=== PATIENT | male | born 1935 | race Hispanic/Latino ===

== ENCOUNTER 2018-02-17 00:26 | Inpatient (IN) | payer MEDICARE, OTHER ==
[2018-02-17] VITALS (8 sets, daily range): BP systolic 128–178; BP diastolic 62–81
[~2018-02-17] VITALS: Ht 172.7 cm; Wt 74.6 kg
[~2018-02-17 00:26] MED LIST: ASPIRIN325 MG PO; BETIMOL5 M1; FINASTERIDE5 MG PO; FLAGYL250 MG PO; GLIMEPIRIDE2 MG PO; GLYBURIDE PO; LISINOPRIL10 MG PO; LOSARTAN POTASS25 MG PO; NIFEDICAL XL30 MG PO; NORVASC PO; NORVASC5 MG PO; PROAIR HFA INH8.5 GM; SIMVASTATIN PO; SIMVASTATIN20 MG PO; SYNTHROID125 MCG PO; TAMSULOSIN HCL0.4 MG PO; Z.0.AMBIEN CR12.5 MG PO; Z.0.FLOMAX0.4 MG PO; Z.0.LEVOTHYROXINE125 PO; ZOFRAN ODT4 MG PO
--- OUTSIDE RECORDS SUMMARY | 2018-02-17 00:29 | XMS REPORT ---
[facility] Address Unknown Phone Unavailable Care Team Providers Care Loan Interviewer Mortgage Name Role Phone Unavailable Unavailable Payers Payer Name Policy Type Policy Number Effective Date Expiration Date Problems This patient has no known problems. Allergies, Adverse Reactions, Alerts Allergy Name Allergy Type Status Severity Reaction(s) Onset Date Inactive Date Treating Clinician Comments No Known Allergies DA Active U 2017-06-27 00:00:00 Medications This patient has no known medications.
[2018-02-17] MEDS ORDERED: ACETAMINOPHEN 1000 MG/100 ML IV STA (01:06)
[2018-02-17] MEDS ORDERED: SODIUM CHLORIDE 0.9% 1000ML 1,000 ML IV ONE ×2 (01:15)
[2018-02-17] MEDS ORDERED: CEFTRIAXONE SOD 1 GM VIAL IV ONE (01:15)
[2018-02-17 02:17] LABS: BASOPHILS # (AUTO) 0.1 (0.0-0.1); BASOPHILS % 0.4 % (0.0-1.0); HEMATOCRIT 46.2 % (38.2-49.6); HEMOGLOBIN 16.4 g/dL (14.0-18.0); LYMPHOCYTES # (AUTO) 1.5 (1.0-3.2); LYMPHOCYTES % 6.6 % (18.0-39.1); MEAN CORPUSCULAR HEMOGLOBIN 30.1 pg (28-32); MEAN CORPUSCULAR HGB CONC 35.5 g/dL (31-35); MEAN CORPUSCULAR VOLUME 84.9 fL (81-99); MONOCYTES # (AUTO) 1.7 (0.2-0.8); MONOCYTES % 7.7 % (4.4-11.3); NEUTROPHILS # (AUTO) 18.3 (2.1-6.9); NEUTROPHILS % 82.9 % (38.7-80.0); PLATELET COUNT 205 x10e3/uL (140-360); RED BLOOD COUNT 5.44 x10e6/uL (4.3-5.7)
[2018-02-17 02:22] LABS: CLARITY,URINE SL CLOUDY (CLEAR); COLOR,URINE YELLOW (YELLOW); KETONES,URINE TRACE (NEGATIVE); LEUKOCYTE ESTERASE ,URINE TRACE (NEGATIVE); NITRITE,URINE NEGATIVE (NEGATIVE); PROTEIN,URINE DIPSTICK 1+ (NEGATIVE); URINE UROBILINOGEN 0.2 mg/dL (0.2 - 1)
[2018-02-17 02:23] LABS: BILIRUBIN,URINE NEGATIVE (NEGATIVE)
[2018-02-17 02:40] LABS: ALANINE AMINOTRANSFERASE 30 IU/L (0-55); ALBUMIN 4.1 g/dL (3.5-5.0); ALBUMIN/GLOBULIN RATIO 1.4 (0.8-2.0); ALKALINE PHOSPHATASE 104 IU/L (40-150); ANION GAP 18.9 mmol/L (8-16); BLOOD UREA NITROGEN 17 mg/dL (7-26); BUN/CREATININE RATIO 14 (6-25); CALCIUM 9.5 mg/dL (8.4-10.2); CARBON DIOXIDE 23 mmol/L (22-29); CHLORIDE 98 mmol/L (98-107); CREATINE KINASE 139 IU/L (30-200); CREATININE, SERUM 1.21 mg/dL (0.72-1.25); EST GLOMERULAR FILTRATION RATE 58 ML/MIN (60-); GLUCOSE 290 mg/dL (74-118); POTASSIUM 3.9 mmol/L (3.5-5.1); SODIUM 136 mmol/L (136-145)
--- NOTE | 2018-02-17 02:40 | Diagnostic Imaging Report ---
EXAMINATION: CHEST SINGLE (PORTABLE) INDICATION: Fever, cough COMPARISON: 11/10/2011 FINDINGS: AP view TUBES and LINES: None. LUNGS: Lungs are well inflated. Bibasilar opacities likely representing atelectasis. There is no evidence of pulmonary edema. PLEURA: No pleural effusion or pneumothorax. HEART AND MEDIASTINUM: The cardiomediastinal silhouette is unremarkable. BONES AND SOFT TISSUES: No acute osseous lesion. Soft tissues are unremarkable. UPPER ABDOMEN: No free air under the diaphragm. IMPRESSION: Bibasilar opacities likely representing atelectasis. Developing pneumonia not excluded. Signed by: DR. Mao Oliver MD on 02/17/2018 2:37 AM
[2018-02-17 02:47] LABS: BACTERIA,URINE MANY /HPF; EPITHELIAL CELLS,URINE FEW /LPF; RBC,URINE 0-5 /HPF (0-5); WBC,URINE (MAN) >50 /HPF (0-5)
[2018-02-17] MEDS: AZITHROMYCIN 500MG/NS 250 ML 250 ML IV SCH (03:32)
[2018-02-17] MEDS ORDERED: ONDANSETRON HCL INJ 2 MG/ML VIAL IV STA (03:49)
[2018-02-17] MEDS ORDERED: SODIUM CHLORIDE 0.9% 1000ML 1,000 ML IV SCH (03:49)
[2018-02-17] MEDS ORDERED: DEXTROSE 50% SYRINGE 50 ML IV PRN (04:00)
[2018-02-17] MEDS ORDERED: ACETAMINOPHEN 325 MG TAB PO PRN (04:00)
[2018-02-17 04:12] LABS: BAND NEUTROPHILS % (MANUAL) 3 %; LYMPHOCYTES % (MANUAL) 7 % (19-48); MONOCYTES % (MANUAL) 12 % (3.4-9.0); NEUTROPHILS % (MANUAL) 75 % (40-74); PLATELET ESTIMATE ADEQUATE; PLATELET MORPHOLOGY COMMENT NORMAL; RBC MORPHOLOGY COMMENT NORMAL
[2018-02-17] MEDS: ALBUTEROL SULF 0.083% NEB SOLN 3 ML NEB NEB SCH ×2 (07:00→11:00)
[2018-02-17] MEDS: IPRATROPIUM BROMIDE 0.02% 2.5 ML NEB NEB SCH ×2 (07:00→13:00)
[2018-02-17] MEDS: INSULIN REGULAR, HUMAN 100 UNIT/1 ML 3ML VIAL SQ SCH ×4 (08:00→20:48)
[2018-02-17 09:34] LABS: CREATINE KINASE 102 IU/L (30-200)
[2018-02-17] MEDS ORDERED: ALBUTEROL/IPRATROPIUM 3 ML NEB NEB PRN (14:30)
--- NOTE | 2018-02-17 15:08 | Diagnostic Imaging Report ---
EXAM: CT Chest WITH contrast INDICATION: Shortness of breath COMPARISON: None. TECHNIQUE: The Chest was scanned utilizing a multidetector helical scanner after administration of IV contrast. Coronal and sagittal reformations were obtained. IV CONTRAST: COMPLICATIONS: None RADIATION DOSE: Total DLP: 515 mGy*cm Estimated effective dose: (DLP x 0.015 x size factor) mSv CTDIvol has been reviewed. It is below the limits set by the Radiation Protocol Committee (RPC). Appropriate CT dose reduction techniques were utilized. FINDINGS: Lines and Tubes: Tracheal cannula. Lower Neck: Postsurgical changes. Heart and Great Vessels: The aorta and main pulmonary artery measure 38 and 29 mm. respectively. No pericardial effusion. Moderate coronary artery vascular calcifications. Lymph Nodes: Small scattered mediastinal lymph nodes, not distinctly enlarged by size criteria. The hilar regions are sub-optimally evaluated given lack of IV contrast. Lungs: Moderate biapical scarring. No pneumothorax. Basilar subpleural reticulation, minimal groundglass opacities, linear scarring, and probable minimal bronchiectasis. Trachea and central bronchi are unremarkable. More peripheral bronchial wall thickening. Minimal centrilobular emphysematous changes. Upper abdomen: Limited. Hiatal hernia. Bones and Soft Tissues: Mild gynecomastia. No acute osseous findings. IMPRESSION: 1. No definite acute finding. 2. Basilar fibrotic changes/scarring may be senescent, sequela of recurrent/prior infection, or recurrent microaspiration. 3. Hiatal hernia. Signed by: Dr. Patrice Partida MD on 02/17/2018 3:04 PM
[2018-02-17] MEDS: GLIMEPIRIDE 2 MG TAB PO SCH (16:54)
[2018-02-17] MEDS: LISINOPRIL 10 MG TAB PO SCH (16:55)
[2018-02-17 17:22] LABS: CREATINE KINASE 88 IU/L (30-200)
--- NOTE | 2018-02-17 17:29 | History and Physical ---
PCP: Dr. Ashleigh Cain. CHIEF COMPLAINT: Increasing shortness of breath, coughing, not feeling well for the past week. Had recent eye surgery approximately 2 days ago, had fever of 101 on admission with greenish sputum from the tracheal opening. SUMMARY: Patient is an 82-year-old male with a chronic tracheal opening. Patient has fever with increase in output. Patient just recently had his eye procedures. He came in very weak and almost confused due to hypoxia. The patient is initiated on antibiotics. He is stable, admitted to the hospital for further treatment. 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 PAST SURGICAL HISTORY: Tracheostomy with laryngeal removal and tracheal opening now. SOCIAL HISTORY: Patient was a former smoker, he quit many years ago. No alcohol. No recreational drug use. Patient lives by himself and able to do his ADL. ALLERGIES: NO KNOWN ALLERGY. HOME MEDICATIONS: Patient was on Norvasc, aspirin, finasteride, Amaryl, levothyroxine, lisinopril, Flomax. PHYSICAL EXAMINATION VITAL SIGNS: T-max was 101, blood pressure 73/64, pulse rate was 105, respirations 18. GENERAL: The patient is not in acute distress. He is awake. HEENT: Normocephalic, atraumatic. Sclerae anicteric. NECK: Has a tracheal opening. PULMONARY: Bilateral coarse rales and rhonchi. CARDIOVASCULAR: S1, S2. Tachycardia. ABDOMEN: Soft. Nontender. No distention. EXTREMITIES: No gross cyanosis or edema. NEUROLOGIC: No gross focal deficit. Patient is coherent. LABORATORY DATA: WBC is 22,000, hemoglobin 16.4, hematocrit 46.2, platelets are 205. Chemistry, sodium 136, potassium 3.9, chloride 98, bicarb 23, BUN is 17, creatinine 1.2. Glucose is 290. Urinalysis is with 1+ blood, greater than 50 wbc's, and many bacteria. Imaging tests show possible bilateral pneumonia. IMPRESSION 1. Sepsis, moderate, with low blood pressure. Responded to intravenous fluid bolus. Therefore, no shock. 2. Urinary tract infection associated with urinary retention. 3. Urinary retention. 4. Aspiration pneumonia due to patient's history of laryngeal carcinoma with laryngeal removal and tracheal opening. PLAN: Continue with IV antibiotic, Zosyn, and azithromycin. IV fluid support bolus that was given, patient responded well. Continue with supportive measure. Resume home medication, Flomax. We will obtain a CT of the chest to document the aspiration with infiltrate and pneumonia. Check urine culture. Patient will be admitted for treatment. Job#: [id number] LPA
[2018-02-17] MEDS: PIPER-TAZ 3.375 GM 50 ML IV SCH (18:21)
[2018-02-17] MEDS: ALBUTEROL/IPRATROPIUM 3 ML NEB NEB SCH (19:57)
[2018-02-17] MEDS: TAMSULOSIN HCL 0.4 MG CAP PO SCH (20:47)
[2018-02-17] MEDS: AMLODIPINE BESYLATE 5 MG TAB PO SCH (20:48)
[2018-02-17] MEDS ORDERED: CEFTRIAXONE SOD 1 GM VIAL IV SCH (21:00)
[2018-02-17] MEDS: GUAIFENESIN 200 MG/10 ML UDC PO SCH (22:00)
[2018-02-18] VITALS (7 sets, daily range): BP systolic 102–158; BP diastolic 55–90
[2018-02-18] MEDS: ALBUTEROL/IPRATROPIUM 3 ML NEB NEB SCH ×4 (01:00→19:20)
[2018-02-18] MEDS ORDERED: CEFTRIAXONE SOD 1 GM VIAL IV SCH (02:00)
[2018-02-18] MEDS: AZITHROMYCIN 500MG/NS 250 ML 250 ML IV SCH (03:00)
[2018-02-18] MEDS: PIPER-TAZ 3.375 GM 50 ML IV SCH ×4 (06:00→18:30)
[2018-02-18] MEDS: LEVOTHYROXINE SODIUM 100 MCG TAB PO SCH (06:00)
[2018-02-18] MEDS: GUAIFENESIN 200 MG/10 ML UDC PO SCH ×3 (06:00→22:00)
[2018-02-18 07:17] LABS: BASOPHILS % 0.3 % (0.0-1.0); EOSINOPHILS # (AUTO) 0.1 (0.0-0.4); EOSINOPHILS % 0.5 % (0.0-6.0); HEMATOCRIT 37.4 % (38.2-49.6); HEMOGLOBIN 13.1 g/dL (14.0-18.0); LYMPHOCYTES # (AUTO) 1.8 (1.0-3.2); LYMPHOCYTES % 12.3 % (18.0-39.1); MEAN CORPUSCULAR HEMOGLOBIN 29.4 pg (28-32); MONOCYTES # (AUTO) 1.3 (0.2-0.8); MONOCYTES % 8.7 % (4.4-11.3); NEUTROPHILS # (AUTO) 11.4 (2.1-6.9); NEUTROPHILS % 77.2 % (38.7-80.0); PLATELET COUNT 176 x10e3/uL (140-360); RED BLOOD COUNT 4.45 x10e6/uL (4.3-5.7)
[2018-02-18] MEDS: INSULIN REGULAR, HUMAN 100 UNIT/1 ML 3ML VIAL SQ SCH ×4 (07:30→21:00)
[2018-02-18 07:33] LABS: ANION GAP 13.1 mmol/L (8-16); BLOOD UREA NITROGEN 14 mg/dL (7-26); BUN/CREATININE RATIO 16 (6-25); CALCIUM 8.5 mg/dL (8.4-10.2); CARBON DIOXIDE 23 mmol/L (22-29); CHLORIDE 105 mmol/L (98-107); CREATININE, SERUM 0.86 mg/dL (0.72-1.25); EST GLOMERULAR FILTRATION RATE > 60 ML/MIN (60-); GLUCOSE 106 mg/dL (74-118); POTASSIUM 3.1 mmol/L (3.5-5.1); SODIUM 138 mmol/L (136-145)
[2018-02-18] MEDS: LISINOPRIL 10 MG TAB PO SCH ×2 (08:22→17:00)
[2018-02-18] MEDS: GLIMEPIRIDE 2 MG TAB PO SCH ×2 (08:28→17:44)
[2018-02-18] MEDS: ASPIRIN 325 MG TAB PO SCH (08:28)
[2018-02-18] MEDS: FINASTERIDE 5 MG TAB PO SCH (08:28)
[2018-02-18] MEDS: AMLODIPINE BESYLATE 5 MG TAB PO SCH (21:00)
[2018-02-18] MEDS: TAMSULOSIN HCL 0.4 MG CAP PO SCH (21:00)
[2018-02-19] VITALS (7 sets, daily range): BP systolic 100–193; BP diastolic 63–89
[2018-02-19] MEDS: ALBUTEROL/IPRATROPIUM 3 ML NEB NEB SCH ×4 (01:02→21:10)
[2018-02-19] MEDS: AZITHROMYCIN 500MG/NS 250 ML 250 ML IV SCH (03:00)
[2018-02-19] MEDS: PIPER-TAZ 3.375 GM 50 ML IV SCH ×4 (05:23→18:11)
[2018-02-19] MEDS: GUAIFENESIN 200 MG/10 ML UDC PO SCH ×3 (05:24→22:08)
[2018-02-19] MEDS: LEVOTHYROXINE SODIUM 100 MCG TAB PO SCH (05:25)
[2018-02-19] MEDS: INSULIN REGULAR, HUMAN 100 UNIT/1 ML 3ML VIAL SQ SCH ×4 (08:43→20:40)
[2018-02-19] MEDS ORDERED: POTASSIUM CHLORIDE 10MEQ EA PO NR (09:30)
[2018-02-19] MEDS: GLIMEPIRIDE 2 MG TAB PO SCH ×2 (10:10→18:11)
[2018-02-19] MEDS: LISINOPRIL 10 MG TAB PO SCH ×2 (10:10→18:11)
[2018-02-19] MEDS: FINASTERIDE 5 MG TAB PO SCH (10:10)
[2018-02-19] MEDS: ASPIRIN 325 MG TAB PO SCH (10:10)
--- NOTE | 2018-02-19 11:18 | Diagnostic Imaging Report ---
EXAM: XR CHEST 2 VIEWS DATE: 02/19/2018 9:37 AM INDICATION: Pneumonia COMPARISON: 02/17/2018 CT, 02/17/2018 radiograph, no reports available. FINDINGS: Lines and Tubes: None Heart and Mediastinum: No acute cardiomediastinal findings. Lungs and Pleura: Mild to moderate biapical scarring is present. Coarse opacities in the lung bases have the appearance of scarring and minimal bronchiectasis better seen on CT. Bones and Soft Tissues: No acute findings. IMPRESSION: 1. Chronic changes of the lungs as above. Superimposed infectious process not entirely excluded. Signed by: Dr. Patrice Partida MD on 02/19/2018 11:15 AM
--- NOTE | 2018-02-19 15:26 | Consultation ---
DATE OF CONSULTATION: February 19, 2018 PULMONARY CONSULTATION PATIENT LOCATION: Room 285. Mr. Andujar is an 82-year-old man who presented here on the to the emergency department with a diagnosis of pneumonia, UTI and volume depletion. Apparently, he had one week history of overall not feeling well, increased cough, some sputum at times and fever. He was found to have a temperature of 101 on admission with increased sputum production from his tracheal stoma that was green in coloration. He was very weak on arrival. He is starting to feel better. PAST MEDICAL HISTORY: Includes laryngeal cancer, status post 2 bouts of radiation and then subsequent surgery with a total laryngectomy. 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 He has diabetes and hypertension. PAST SURGICAL HISTORY: As described above. SOCIAL HISTORY: He smoked for 42 years. He quit many years ago. He does not drink. No history of drugs. He was in the army. He was in [place] and [place]. He lives by himself and is otherwise independent. HOME MEDICATIONS: Reviewed. PHYSICAL EXAMINATION VITAL SIGNS: His maximum temperature on admission on the was 101. His blood pressure was 70s/60s. His heart rate was 105. He has been afebrile. He now has temperature of 98.2, heart rate is in the 70s to 80s. Blood pressure 153/65. He is 96% on room air. GENERAL: This is a very pleasant, male who looks younger than his stated age of 82. HEENT: His head is normocephalic. His pupils and eyes have some arcus senilis and some changes. Sclerae anicteric. His mucous membranes are moist. NECK: Has open tracheal stoma. There is what looks like a surgical flap above it that is well healed. CHEST: Has a few crackles at the bases. HEART: Regular rate and rhythm with murmurs, rubs or gallops ABDOMEN: Soft and nontender. EXTREMITIES: No cyanosis, clubbing or edema. SKIN: Without rash. : He does have a Cao catheter with some blood-tinged urine. LABORATORY DATA: On admission, his white count was 22, hemoglobin and hematocrit were 16 and 46 with 205,000 platelets. He had a left shift. His white count is now down to 14,000. Chemistry: Sodium 138, potassium 3.1, chloride 105, bicarbonate 23. BUN and creatinine are 14 and 0.86 respectively. He had some negative cardiac enzymes as well. Albumin is 4.1. Urinalysis was cloudy with 1+ proteinuria, 3+ glucose, 1+ blood, no nitrites, but he did have trace leukocyte esterase, pyuria and many bacteria. Cultures notably are positive in the urine for Klebsiella species, resistant only to ampicillin, otherwise it is pansensitive. IMAGING: I reviewed his imaging. Initial chest x-ray shows bibasilar streaky opacities. He had a CAT scan of the chest that was done. The esophagus is dilated and air filled essentially its entire length. There is emphysematous scarring at the apices. In the lower zones, he had some chronic interstitial or reticular linear changes, but he also had some bronchiectatic changes. I do not see any acute infiltrates or pneumonias. ASSESSMENT 1. Aspiration pneumonitis. 2. Laryngeal cancer, personal history with tracheal stoma. 3. Bronchiectasis secondary to chronic aspiration. 4. Emphysema. 5. Urinary tract infection with Klebsiella. CURRENT MEDICATIONS: Zosyn, guaifenesin, lisinopril, Amaryl, Proscar, aspirin, DuoNeb, Azithromycin, Norvasc, Flomax, levothyroxine, guaifenesin. RECOMMENDATIONS AND PLAN: Continue antibiotic therapy. Continue nebulized bronchodilators. He does not have a nebulizer at home. I recommend that he get a nebulizer with DuoNeb for the time of discharge that he can take through his stoma if his secretions get thick or he has more shortness of breath or wheezing. He states he feels better with it. Due to his tracheal stoma, it is impossible to do pulmonary function testing, but at least radiographically he does have emphysematous changes and thus COPD. Further recommendations pending clinical course. Job#: [id number]
[2018-02-19] MEDS ORDERED: SODIUM CHLORIDE 0.9% 250ML 250 ML ONE (18:46)
[2018-02-19] MEDS: AMLODIPINE BESYLATE 5 MG TAB PO SCH (20:40)
[2018-02-19] MEDS: TAMSULOSIN HCL 0.4 MG CAP PO SCH (20:40)
[2018-02-20] VITALS (8 sets, daily range): BP systolic 155–192; BP diastolic 72–89
[2018-02-20] MEDS: PIPER-TAZ 3.375 GM 50 ML IV SCH ×4 (00:02→17:26)
[2018-02-20] MEDS: ALBUTEROL/IPRATROPIUM 3 ML NEB NEB SCH ×4 (01:35→19:00)
[2018-02-20] MEDS: AZITHROMYCIN 500MG/NS 250 ML 250 ML IV SCH (03:11)
[2018-02-20] MEDS: LEVOTHYROXINE SODIUM 100 MCG TAB PO SCH (05:29)
[2018-02-20] MEDS: GUAIFENESIN 200 MG/10 ML UDC PO SCH ×3 (05:29→21:59)
[2018-02-20 05:33] LABS: ANION GAP 15.3 mmol/L (8-16); BLOOD UREA NITROGEN 12 mg/dL (7-26); BUN/CREATININE RATIO 13 (6-25); CALCIUM 8.3 mg/dL (8.4-10.2); CARBON DIOXIDE 24 mmol/L (22-29); CHLORIDE 102 mmol/L (98-107); CREATININE, SERUM 0.96 mg/dL (0.72-1.25); EST GLOMERULAR FILTRATION RATE > 60 ML/MIN (60-); GLUCOSE 203 mg/dL (74-118); POTASSIUM 3.3 mmol/L (3.5-5.1); SODIUM 138 mmol/L (136-145)
[2018-02-20] MEDS: GLIMEPIRIDE 2 MG TAB PO SCH ×2 (09:40→17:25)
[2018-02-20] MEDS: ASPIRIN 325 MG TAB PO SCH (09:50)
[2018-02-20] MEDS: FINASTERIDE 5 MG TAB PO SCH (09:51)
[2018-02-20] MEDS: LISINOPRIL 10 MG TAB PO SCH ×2 (09:51→17:26)
[2018-02-20] MEDS: INSULIN REGULAR, HUMAN 100 UNIT/1 ML 3ML VIAL SQ SCH ×4 (09:52→20:29)
[2018-02-20] MEDS ORDERED: POTASSIUM CHLORIDE 20 MEQ TAB CR PO NR (10:00)
[2018-02-20] MEDS: TAMSULOSIN HCL 0.4 MG CAP PO SCH (20:29)
[2018-02-20] MEDS: AMLODIPINE BESYLATE 5 MG TAB PO SCH (20:29)
[2018-02-21] VITALS (9 sets, daily range): BP systolic 128–152; BP diastolic 50–76
[2018-02-21] MEDS: PIPER-TAZ 3.375 GM 50 ML IV SCH ×4 (00:08→16:29)
[2018-02-21] MEDS: ALBUTEROL/IPRATROPIUM 3 ML NEB NEB SCH ×4 (00:15→19:00)
[2018-02-21] MEDS: AZITHROMYCIN 500MG/NS 250 ML 250 ML IV SCH (03:15)
[2018-02-21] MEDS: GUAIFENESIN 200 MG/10 ML UDC PO SCH ×3 (05:38→21:17)
[2018-02-21] MEDS: LEVOTHYROXINE SODIUM 100 MCG TAB PO SCH (05:38)
[2018-02-21] MEDS: INSULIN REGULAR, HUMAN 100 UNIT/1 ML 3ML VIAL SQ SCH ×4 (07:30→21:16)
[2018-02-21] MEDS: GLIMEPIRIDE 2 MG TAB PO SCH ×2 (09:03→16:29)
[2018-02-21] MEDS: ASPIRIN 325 MG TAB PO SCH (09:03)
[2018-02-21] MEDS: LISINOPRIL 10 MG TAB PO SCH ×2 (09:03→16:29)
[2018-02-21] MEDS: FINASTERIDE 5 MG TAB PO SCH (09:03)
[2018-02-21] MEDS ORDERED: ZOLPIDEM TARTRA10 MG PO (16:32)
[2018-02-21] MEDS ORDERED: ZOLPIDEM TARTRATE 12.5 MG PO SCH (21:00)
[2018-02-21] MEDS: ZOLPIDEM TARTRATE 12.5 MG PO SCH (21:00)
[2018-02-21] MEDS: TAMSULOSIN HCL 0.4 MG CAP PO SCH (21:15)
[2018-02-21] MEDS: AMLODIPINE BESYLATE 5 MG TAB PO SCH (21:15)
[2018-02-22] VITALS (8 sets, daily range): BP systolic 109–173; BP diastolic 59–84
[2018-02-22] MEDS: ALBUTEROL/IPRATROPIUM 3 ML NEB NEB SCH ×2 (00:47→07:00)
[2018-02-22] MEDS: AZITHROMYCIN 500MG/NS 250 ML 250 ML IV SCH (02:49)
[2018-02-22 05:29] LABS: HEMOGLOBIN 15.1 g/dL (14.0-18.0); MEAN CORPUSCULAR HEMOGLOBIN 28.7 pg (28-32); MEAN CORPUSCULAR HGB CONC 33.6 g/dL (31-35); MEAN CORPUSCULAR VOLUME 85.4 fL (81-99); PLATELET COUNT 278 x10e3/uL (140-360); RED BLOOD COUNT 5.27 x10e6/uL (4.3-5.7); RED CELL DISTRIBUTION WIDTH 12.9 % (11.7-14.4)
[2018-02-22 05:56] LABS: ANION GAP 16.7 mmol/L (8-16); BLOOD UREA NITROGEN 12 mg/dL (7-26); BUN/CREATININE RATIO 12 (6-25); CALCIUM 8.8 mg/dL (8.4-10.2); CARBON DIOXIDE 23 mmol/L (22-29); CHLORIDE 100 mmol/L (98-107); CREATININE, SERUM 1.02 mg/dL (0.72-1.25); EST GLOMERULAR FILTRATION RATE > 60 ML/MIN (60-); GLUCOSE 166 mg/dL (74-118); MAGNESIUM 1.8 MG/DL (1.3-2.1); POTASSIUM 3.7 mmol/L (3.5-5.1); SODIUM 136 mmol/L (136-145)
[2018-02-22] MEDS: GUAIFENESIN 200 MG/10 ML UDC PO SCH ×3 (06:00→21:03)
[2018-02-22] MEDS: PIPER-TAZ 3.375 GM 50 ML IV SCH ×4 (06:00→17:07)
[2018-02-22] MEDS: LEVOTHYROXINE SODIUM 100 MCG TAB PO SCH (06:00)
[2018-02-22] MEDS: INSULIN REGULAR, HUMAN 100 UNIT/1 ML 3ML VIAL SQ SCH ×4 (07:30→21:03)
[2018-02-22] MEDS: FINASTERIDE 5 MG TAB PO SCH (08:35)
[2018-02-22] MEDS: GLIMEPIRIDE 2 MG TAB PO SCH ×2 (08:35→17:07)
[2018-02-22] MEDS: LISINOPRIL 10 MG TAB PO SCH ×2 (08:35→17:07)
[2018-02-22] MEDS: ASPIRIN 325 MG TAB PO SCH (08:35)
[2018-02-22 08:38] LABS: EOSINOPHILS % (MANUAL) 7 % (0-7); LYMPHOCYTES % (MANUAL) 11 % (19-48); MONOCYTES % (MANUAL) 8 % (3.4-9.0); NEUTROPHILS % (MANUAL) 60 % (40-74)
[2018-02-22 08:40] LABS: PLATELET ESTIMATE ADEQUATE; RBC MORPHOLOGY COMMENT NORMAL
[2018-02-22] MEDS: ALBUTEROL SULF 0.083% NEB SOLN 3 ML NEB NEB SCH ×2 (13:41→19:15)
[2018-02-22] MEDS: ZOLPIDEM TARTRATE 12.5 MG PO SCH (21:00)
[2018-02-22] MEDS: TAMSULOSIN HCL 0.4 MG CAP PO SCH (21:03)
[2018-02-22] MEDS: AMLODIPINE BESYLATE 5 MG TAB PO SCH (21:03)
[2018-02-23] VITALS: BP 122/80
[2018-02-23] MEDS: PIPER-TAZ 3.375 GM 50 ML IV SCH ×3 (00:44→12:19)
[2018-02-23] MEDS: ALBUTEROL SULF 0.083% NEB SOLN 3 ML NEB NEB SCH ×3 (01:00→12:51)
[2018-02-23] MEDS: AZITHROMYCIN 500MG/NS 250 ML 250 ML IV SCH (02:44)
[2018-02-23 04:00] VITALS: BP 116/65
[2018-02-23] MEDS: GUAIFENESIN 200 MG/10 ML UDC PO SCH (05:22)
[2018-02-23] MEDS: LEVOTHYROXINE SODIUM 100 MCG TAB PO SCH (05:22)
[2018-02-23] MEDS: INSULIN REGULAR, HUMAN 100 UNIT/1 ML 3ML VIAL SQ SCH ×2 (07:30→12:19)
[2018-02-23 08:35] VITALS: BP 121/62
[2018-02-23] MEDS: GLIMEPIRIDE 2 MG TAB PO SCH (08:35)
[2018-02-23] MEDS: ASPIRIN 325 MG TAB PO SCH (08:35)
[2018-02-23] MEDS: LISINOPRIL 10 MG TAB PO SCH (08:35)
[2018-02-23] MEDS: FINASTERIDE 5 MG TAB PO SCH (08:35)
[2018-02-23 09:34] VITALS: BP 121/62
[2018-02-23 11:33] VITALS: BP 144/61
[2018-02-23] MEDS ORDERED: FLAGYL250 MG PO (14:05)
[2018-02-23] MEDS ORDERED: ZOFRAN8 MG SL (14:05)
[2018-02-23] MEDS ORDERED: ALBUTEROL2.5 MG/0.5 NEB (14:07)
--- NOTE | 2018-02-23 17:27 | Discharge Summary ---
PRIMARY CARE PHYSICIAN: OCTAVIO PISANO MD BRAZING MACHINE SETTER: Dr. Erwin Momin, cable stretcher and tester. FINAL DIAGNOSES: 1. Moderate sepsis without shock. 2. Recurrent aspiration pneumonia secondary to tracheostomy with aspiration. The patient had laryngeal carcinoma with surgical intervention remotely in the past. 3. Urinary tract infection associated with urinary retention, resolved. 4. Multiple chronic baseline problems. SUMMARY: Patient is an 82-year-old male who came in with urinary retention, volume depletion, dehydration secondary to his having difficulty breathing and not able to eat. The patient has recurrent aspiration pneumonia. At this time, he came in with moderate sepsis. Patient with fever, not feeling well but his blood pressure remained stable. Patient also had urinary retention with urinary tract infection that was subsequently treated as well. Patient is stable. He is doing much better. He completed the course of his antibiotics. It has been 6 days since his admission. The patient remained afebrile, no leukocytosis, no fever. He was getting azithromycin and Zosyn. Patient is comfortable. I will send the patient home with the following medications: 1. Patient will continue with nebulizer treatment. Prescriptions are given by Dr. Erwin Momin. 2. Flagyl 500 mg 3 times a day for 5 days. The patient will medications of Zofran as well. 3. Otherwise, the patient will resume all of his home medications. Job#: [id number]
== END 2018-02-23 14:30 | disposition home or self-care (01) | DRG 871 ==
LOC: ER 00:26 → ERHOLD 03:49 → MED/SURG3 04:52
PROVIDERS: ADMIT Internal Medicine; ATTEND Internal Medicine
DX: A41.9 Sepsis, unspecified organism (principal); J69.0 Pneumonitis due to inhalation of food and vomit; N39.0 Urinary tract infection, site not specified; J95.03 Malfunction of tracheostomy stoma; R33.8 Other retention of urine; E86.0 Dehydration; Z87.891 Personal history of nicotine dependence; Z85.21 Personal history of malignant neoplasm of larynx; J44.9 Chronic obstructive pulmonary disease, unspecified; J47.9 Bronchiectasis, uncomplicated; B96.1 Klebsiella pneumoniae [K. pneumoniae] as the cause of diseases classified elsewhere; N40.1 Benign prostatic hyperplasia with lower urinary tract symptoms
CPT/HCPCS: 36415; 71045; 71046; 71250; 80048; 80053; 81001; 82550; 82553; 82948; 83605; 83735; 84484; 85007; 85025; 85027; 87040; 87070; 87086; 87186; 87205; 87400; 93005; 94640; 96372; 99284; J0456; J0696; J2543; J7030; J7050